=== PATIENT | female | born 1965 | race Caucasian/White ===

== ENCOUNTER 2016-07-21 15:20 | Emergency (ER) | payer OTHER ==
[2016-07-21] MEDS ORDERED: LORazepam INJ* 2 MG/ML 1 ML VIAL IV PUSH ONE (15:38)
[2016-07-21 16:05] LABS: Hematocrit 44 % (35-47); Mean Corpuscular HGB Conc 35 g/dl (31-36); Mean Corpuscular Hemoglobin 34 pg (27-31); Mean Corpuscular Volume 97 fL (80-97); Mean Platelet Volume 8 um3 (7.4-10.4); Red Blood Count 4.49 10^6/ul (4.0-5.4); Red Cell Distribution Width 13 % (10.5-15); White Blood Count 11.3 10^3/ul (3.5-10.8)
[2016-07-21] MEDS ORDERED: NS 0.9% 1000 ML* 1,000 ML IV ONE (16:19)
[2016-07-21 16:20] LABS: Albumin 4.5 g/dL (3.2-5.2); BUN/Creatinine Ratio 22.2 (8-20); Calcium 10.6 mg/dL (8.6-10.3); EGFR African American 128.6 (>60); Globulin 3.5 g/dL (2-4); Potassium 3.4 mmol/L (3.5-5.0); Total Bilirubin 0.6 mg/dL (0.2-1.0)
[2016-07-21 17:11] LABS: Urine Bilirubin Negative (Negative); Urine Glucose Negative (Negative); Urine Nitrite Negative (Negative)
[2016-07-21] MEDS ORDERED: LORazepam TAB(*) 1 MG PO ONE (17:33)
[2016-07-21] MEDS ORDERED: Potassium Chlor TAB* 20 MEQ TAB.ER PO ONE (17:38)
[2016-07-21 18:57] VITALS: BP 162/92
--- NOTE | 2016-07-26 12:12 | ED ---
Juan C Buckley Billy scribed for Dennis Donovan MD on 07/21/16 at 1536 . Hypertension - HPI Summary HPI Summary: Patient is a 51 year-old female coming to [facility] for evaluation of hypertension. Patient denies history of hypertension. Her symptoms began at 1300 today, when she began to feel dizzy/lightheaded and short of breath. Denies any chest pain, headache, blurred vision, or N/V/D. Prior to 1300 today, she was in her normal state of health. However, she states that she felt incredibly stressed. She denies any formal diagnosis of anxiety, but her family states that she is often very anxious. - History of Current Complaint Chief Complaint: EDHypertension Stated Complaint: SLURRED SPEECH,SOB,FLUSHED Time Seen by Provider: 07/21/16 15:32 Hx Obtained From: Patient Onset/Duration: Started Hours Ago Timing: Constant Aggravating Factor(s): Nothing Alleviating Factor(s): Nothing Associated Signs & Symptoms: Anxiety/Stress, Dizziness - Allergies/Home Medications Allergies/Adverse Reactions: Allergies Allergy/AdvReac Type Severity Reaction Status Date / Time No Known Allergies Allergy Verified 07/21/16 16:04 Home Medications: Home Medications NK [No Home Medications Reported] 07/21/16 [History Confirmed 07/21/16] PMH/Surg Hx/FS Hx/Imm Hx Endocrine/Hematology History: Denies: Hx Diabetes Cardiovascular History: Denies: Hx Hypertension Psychiatric History: Denies: Hx Anxiety - Surgical History Surgery Procedure, Year, and Place: hysterectomy Infectious Disease History: Denies: Traveled Outside the [place] in Last 30 Days - Family History Known Family History: Positive: Hypertension, Other - Colon cancer - Social History Lives: With Family Alcohol Use: Daily Hx Substance Use: No Substance Use Type: Reports: None Hx Tobacco Use: Yes Smoking Status (MU): Current Every Day Smoker Review of Systems Negative: Blurred Vision Cardiovascular: Other - hypertension Negative: Chest Pain Positive: Shortness Of Breath Negative: Vomiting, Diarrhea, Nausea Neurological: Other - dizzy/lightheaded Negative: Headache Positive: Anxious All Other Systems Reviewed And Are Negative: Yes Physical Exam Triage Information Reviewed: Yes Vital Signs On Initial Exam: Initial Vitals Temp Pulse Resp BP Pulse Ox 97.9 F 108 18 189/99 100 07/21/16 15:22 07/21/16 15:22 07/21/16 15:22 07/21/16 15:22 07/21/16 15:22 Vital Signs Reviewed: Yes Diagnostics - Vital Signs Vital Signs Temp Pulse Resp BP Pulse Ox 07/21/16 15:22 97.9 F 108 18 189/99 100 - Laboratory Result Diagrams: 07/21/16 15:55 07/21/16 15:55 Lab Statement: Any lab studies that have been ordered have been reviewed, and results considered in the medical decision making process. - EKG 1534 EKG Interpretation: sinus tachycardia 108 bpm, no STEMI Re-Evaluation - Re-Evaluation First Eval Re-Evaluation Time: 17:33 Change: Improved Comment: The patient is feeling much better at this time. Hypertension Course/Dx - Course Assessment/Plan: Patient is a 51 year-old female coming to [facility] for evaluation of hypertension. Patient denies history of hypertension. Her symptoms began at 1300 today, when she began to feel dizzy/lightheaded and short of breath. Denies any chest pain, headache, blurred vision, or N/V/D. Prior to 1300 today, she was in her normal state of health. However, she states that she felt incredibly stressed. She denies any formal diagnosis of anxiety, but her family states that she is often very anxious. Test results WNL except for WBC of 11.3, potassium of 3.4, glucose 112. Calcium is 10.6. UA is negative for UTI. EKG shows NSR without STEMI. The patient appears very anxious and nervous therefore she was given 1x tablet of Ativan. After the Ativan, her symptoms have improved. The BP now is 144/86 and she is asymptomatic. At this point, I discussed my physical exam findings with the patient and her and the need to follow up with her PCP. The patient still has an increased BP, but this is the first time she was found with high blood pressure, so she was given instructions for diet, exercise, weight loss, as well as the importance to follow up with her PCP. She understands and agrees. She is hemodynamically stable, A&Ox3. - Diagnoses Provider Diagnoses: increased blood pressure, Anxiety Discharge - Discharge Plan Condition: Stable Disposition: HOME Patient Education Materials: Hypertension (ED) Referrals: [facility] [Outside] The documentation as recorded by the Juan C emerson Billy accurately reflects the service I personally performed and the decisions made by me, Dennis Donovan MD.
== END 2016-07-21 19:21 | disposition home or self-care (01) ==
LOC: ED 15:20
DX: R03.0 Elevated blood-pressure reading, without diagnosis of hypertension (principal); R47.81 Slurred speech; F41.9 Anxiety disorder, unspecified
CPT/HCPCS: 36415; 80053; 81003; 83605; 85025; 93005; 96374; 99283; A9270-GY; J2060